=== PATIENT | female | born 1990 | race Caucasian/White ===

== ENCOUNTER 2021-09-30 16:51 | Outpatient (REF) | payer OTHER, SELFPAY ==
--- NOTE | 2021-09-30 15:00 | PAPFT_PTH ---
PATIENT: Naa Mariscal LOC: [facility] U#:[id number] AGE/SX: 31/F ROOM: RE09/30/[address]: Colette Maldonado : 1990 BED: DIS: 09/30/2021 SPEC #: [id number] RECD: 10/01/21 12:56 STATUS: ADANChepe REQ #: [id number] RAÚL: 09/30/21 15:[address]: Colette Maldonado DEPT: [facility] Cytology RECD BY: Anabell Girard Tissues: 1 - CX/ENDOCX FOR PAP SMEARS Procedures: PAP THIN PREP/[facility] Screening HPV DNA PROBE Comments: [id number] (CHLAMYDIA/GC)
[2021-10-02 14:53] LABS: Chlamydia Result Negative (Negative); GC Result Negative (Negative)
== END 2021-09-30 16:52 | disposition home or self-care (01) ==
LOC: LBN 16:51
PROVIDERS: PCP Family Medicine; Visit Provider Family Medicine
DX: Z12.4 Encounter for screening for malignant neoplasm of cervix (principal); Z11.3 Encounter for screening for infections with a predominantly sexual mode of transmission; Z11.51 Encounter for screening for human papillomavirus (HPV)
CPT/HCPCS: 87491; 87591; 88142; 87624

== ENCOUNTER 2025-06-28 21:21 | Outpatient (REF) | payer SELFPAY ==
[2025-06-28 21:49] LABS: Hemoglobin A1C 5.0 % (<5.7)
[2025-06-28 21:52] LABS: TSH (W/Ref FT4) 0.55 uIU/mL (0.36-3.74)
== END 2025-06-28 21:22 | disposition home or self-care (01) ==
LOC: NCHCN 21:21
PROVIDERS: PCP Family Medicine; Visit Provider Family Medicine
DX: R63.5 Abnormal weight gain (principal); Z13.1 Encounter for screening for diabetes mellitus
CPT/HCPCS: 83036; 84443